=== PATIENT | male | born 1995 | race Hispanic/Latino ===

== ENCOUNTER 2022-01-24 18:29 | Emergency (ER) | payer OTHER ==
[2022-01-24] MEDS ORDERED: CYCL10TA16 PO (18:53)
[2022-01-24] MEDS ORDERED: IBUP-2070 PO (18:53)
[2022-01-24] MEDS ORDERED: IBUPROFEN 600 MG TABLET PO ONE (19:00)
[2022-01-24] MEDS ORDERED: LIDOCAINE 5% TOPICAL PATCH TP ONE (19:00)
[2022-01-24] MEDS ORDERED: CYCLOBENZAPRINE HCL 10 MG TABLET PO ONE (19:00)
[2022-01-24 20:41] VITALS: BP 143/85
== END 2022-01-24 20:57 | disposition home or self-care (01) ==
LOC: EDH 18:29
DX: S39.012A Strain of muscle, fascia and tendon of lower back, initial encounter (principal); I10 Essential (primary) hypertension; Z79.1 Long term (current) use of non-steroidal anti-inflammatories (NSAID); V89.2XXA Person injured in unspecified motor-vehicle accident, traffic, initial encounter; Y93.89 Activity, other specified; Y92.89 Other specified places as the place of occurrence of the external cause; Y99.8 Other external cause status
CPT/HCPCS: 72100